=== PATIENT | male | born 1965 | race Two or more races ===

== ENCOUNTER 2023-08-04 15:22 | Inpatient (IN) | payer OTHER ==
[~2023-08-04] VITALS: Ht 172.7 cm; Wt 95.2 kg
[2023-08-04 16:25] LABS: Basophils # (auto) 0.1 10 ^3/uL (0-0.2); Basophils % (auto) 0.7 % (0.0-2.0); Eosinophils # (auto) 0 10 ^3/uL (0-0.8); Eosinophils % (auto) 0.7 % (0.0-7.0); Hemoglobin 14.4 g/dL (13.5-17.5); Lymphocytes # (auto) 2.2 10 ^3/uL (0.4-5.4); Lymphocytes % (auto) 30.5 % (10.0-50.0); Mean Corpuscular Hemoglobin 27.6 pg (28.0-32.0); Mean Corpuscular Hgb Conc. 32.7 g/dL (32.0-36.0); Mean Corpuscular Volume 84.6 fL (80.0-100.0); Monocytes # (auto) 0.4 10 ^3/uL (0-1.3); Monocytes % (auto) 6.1 % (0.0-12.0); Neutrophils # (auto) 4.4 10 ^3/uL (1.6-8.6); Red Cell Distribution Width 13.5 % (11.8-14.3); White Blood Cell 7.1 10^3/uL (4.4-10.8)
[2023-08-04 16:46] LABS: Alanine Aminotransferase 146 U/L (7-40); Albumin 4.3 g/dL (3.2-4.8); Alkaline Phosphatase 161 U/L (46-116); Anion Gap 13 (5-15); Aspartate Aminotransferase 57 U/L (13-40); BUN/Creatinine Ratio 12.9 (10.0-20.0); Bilirubin, Total 0.6 mg/dL (0.2-1.0); Blood Urea Nitrogen 18 mg/dL (9-23); Calcium 9.4 mg/dL (8.5-10.1); Carbon Dioxide 19 mmol/L (20-30); Chloride 95 mmol/L (98-107); Potassium 4.7 mmol/L (3.5-5.1); Sodium 127 mmol/L (136-145); Total Protein 6.6 g/dL (5.7-8.2)
[2023-08-04 16:53] LABS: INR 1.01 (0.9-1.15); Partial Thromboplastin Time 26.8 SEC (24.5-34.5); Prothrombin Time 10.6 sec (9.3-11.8)
[2023-08-04 17:09] LABS: Glucose 664 mg/dL (74-106)
[2023-08-04] MEDS ORDERED: SODIUM CHLORIDE 0.9% 1,000 ML IV ONE ×2 (17:15)
[2023-08-04] MEDS ORDERED: InsuLIN REG 1unit/0.01ml Soln (100units/ml) IV ONE (17:15)
[2023-08-04 17:20] LABS: Urine Bacteria NONE SEEN /hpf (None Seen); Urine Blood Negative /uL (Negative); Urine Clarity Clear (Clear); Urine Color Colorless (Yellow); Urine Protein, UAD Negative (Negative); Urine Specific Gravity 1.036 (1.001-1.035); Urine Urobilinogen Normal (Negative); Urine WBC <1 /hpf (0 - 3); Urine pH 5.5 (5.0-8.0)
[2023-08-04 20:30] LABS: Alanine Aminotransferase 127 U/L (7-40); Alkaline Phosphatase 159 U/L (46-116); Anion Gap 13 (5-15); BUN/Creatinine Ratio 9.4 (10.0-20.0); Blood Urea Nitrogen 12 mg/dL (9-23); Calcium 8.9 mg/dL (8.5-10.1); Carbon Dioxide 17 mmol/L (20-30); Chloride 104 mmol/L (98-107)
[2023-08-04 20:31] LABS: Bilirubin, Total 0.4 mg/dL (0.2-1.0); Total Protein 6.4 g/dL (5.7-8.2)
[2023-08-04 20:34] LABS: Aspartate Aminotransferase 52 U/L (13-40)
[2023-08-04 20:35] LABS: Sodium 134 mmol/L (136-145)
[2023-08-04 20:39] LABS: Glucose 532 mg/dL (74-106)
[2023-08-04] MEDS ORDERED: ACETAMINOPHEN 325 MG TAB PO PRN (20:45)
[2023-08-04] MEDS ORDERED: ONDANSETRON HCL 4 MG/2 ML VIAL IV PRN (20:45)
[2023-08-04] MEDS ORDERED: DEXTROSE (50%) 50ML SYRG IV PRN (20:45)
[2023-08-04] MEDS: ACCU-CHEK COMFORT CURVE STRIP VI SCH (23:56)
[2023-08-04] MEDS: InsuLIN REG 1unit/0.01ml Soln (100units/ml) SC SCH (23:56)
[2023-08-05] MEDS: ACCU-CHEK COMFORT CURVE STRIP VI SCH ×5 (03:58→21:36)
[2023-08-05] MEDS: InsuLIN REG 1unit/0.01ml Soln (100units/ml) SC SCH ×5 (04:00→21:40)
[2023-08-05 04:47] VITALS: BP 123/76; PULSE 72; RESP 17; TEMP 97.6; O2SAT 96
[2023-08-05 05:00] VITALS: BP 123/76; PULSE 72; RESP 18; TEMP 97.6; O2SAT 96
[2023-08-05 06:21] LABS: Basophils # (auto) 0 10 ^3/uL (0-0.2); Basophils % (auto) 0.5 % (0.0-2.0); Eosinophils # (auto) 0.2 10 ^3/uL (0-0.8); Eosinophils % (auto) 2.6 % (0.0-7.0); Hematocrit 38.3 % (41.0-53.0); Hemoglobin 12.8 g/dL (13.5-17.5); Lymphocytes # (auto) 3.1 10 ^3/uL (0.4-5.4); Lymphocytes % (auto) 49.3 % (10.0-50.0); Mean Corpuscular Hemoglobin 27.4 pg (28.0-32.0); Mean Corpuscular Hgb Conc. 33.4 g/dL (32.0-36.0); Mean Corpuscular Volume 82.1 fL (80.0-100.0); Monocytes # (auto) 0.4 10 ^3/uL (0-1.3); Neutrophils # (auto) 2.6 10 ^3/uL (1.6-8.6); Neutrophils % (auto) 40.6 % (37.0-80.0); Nucleated Red Blood Cells % 0.1 %; Red Blood Cells 4.66 10^6/uL (4.5-5.90); Red Cell Distribution Width 13.7 % (11.8-14.3); White Blood Cell 6.3 10^3/uL (4.4-10.8)
[2023-08-05 06:38] LABS: Alanine Aminotransferase 111 U/L (7-40); Albumin 3.8 g/dL (3.2-4.8); Alkaline Phosphatase 115 U/L (46-116); Anion Gap 9 (5-15); Aspartate Aminotransferase 40 U/L (13-40); BUN/Creatinine Ratio 10.4 (10.0-20.0); Bilirubin, Total 0.5 mg/dL (0.2-1.0); Blood Urea Nitrogen 10 mg/dL (9-23); Carbon Dioxide 21 mmol/L (20-30); Chloride 105 mmol/L (98-107); Potassium 3.3 mmol/L (3.5-5.1); Sodium 135 mmol/L (136-145)
[2023-08-05 06:45] LABS: Glucose 235 mg/dL (74-106)
[2023-08-05] MEDS ORDERED: LOSA100T58 PO (07:13)
[2023-08-05 09:00] VITALS: BP 115/67; PULSE 80; RESP 18; TEMP 98.2; O2SAT 95
[2023-08-05] MEDS: LOSARTAN POTASSIUM 50 MG TAB PO SCH (09:02)
[2023-08-05 13:00] VITALS: BP 115/76; PULSE 79; RESP 18; TEMP 97.6; O2SAT 97
[2023-08-05] MEDS ORDERED: POTASSIUM CHL 20 Meq TABLET PO ONE (13:15)
[2023-08-05] MEDS: SODIUM CHLORIDE 0.9% 1,000 ML IV SCH (13:50)
[2023-08-05] MEDS: metFORMIN HYDROCHLORIDE 850 MG TAB PO SCH (16:57)
[2023-08-05 17:00] VITALS: BP 142/79; PULSE 78; RESP 17; TEMP 98.4; O2SAT 91
[2023-08-05] MEDS: INSULIN LANTUS (GLARGINE) 1 /0.01ml (100units/ml) SC SCH (21:38)
[2023-08-05 22:00] VITALS: BP 144/90; PULSE 78; RESP 16; TEMP 99.1; O2SAT 95
[2023-08-06] MEDS: ACCU-CHEK COMFORT CURVE STRIP VI SCH ×6 (00:34→21:52)
[2023-08-06] MEDS: InsuLIN REG 1unit/0.01ml Soln (100units/ml) SC SCH ×5 (00:35→17:25)
[2023-08-06 05:00] VITALS: BP 117/81; PULSE 79; RESP 18; TEMP 98.5; O2SAT 95
[2023-08-06] MEDS: SODIUM CHLORIDE 0.9% 1,000 ML IV SCH ×2 (06:29→09:15)
[2023-08-06 07:38] LABS: Alanine Aminotransferase 164 U/L (7-40); Alkaline Phosphatase 85 U/L (46-116); Anion Gap 11 (5-15); BUN/Creatinine Ratio 9.3 (10.0-20.0); Blood Urea Nitrogen 8 mg/dL (9-23); Calcium 8.6 mg/dL (8.5-10.1); Carbon Dioxide 19 mmol/L (20-30); Chloride 108 mmol/L (98-107); Glucose 173 mg/dL (74-106); Potassium 3.1 mmol/L (3.5-5.1); Sodium 138 mmol/L (136-145); Triglycerides 508 mg/dL (< 150)
[2023-08-06 07:39] LABS: Albumin 3.4 g/dL (3.2-4.8); Aspartate Aminotransferase 105 U/L (13-40)
[2023-08-06 07:40] LABS: Bilirubin, Total 0.5 mg/dL (0.2-1.0); Cholesterol 201 mg/dL (< 200); HDL Cholesterol 24 mg/dL (40-59); Phosphorus 2.1 mg/dL (2.4-5.1); Total Protein 5.6 g/dL (5.7-8.2)
[2023-08-06 09:00] VITALS: BP 121/67; PULSE 80; RESP 19; TEMP 98.5; O2SAT 95
[2023-08-06] MEDS: LOSARTAN POTASSIUM 50 MG TAB PO SCH (09:16)
[2023-08-06] MEDS: metFORMIN HYDROCHLORIDE 850 MG TAB PO SCH ×2 (09:16→17:24)
[2023-08-06] MEDS ORDERED: POTASSIUM CHL 20 Meq TABLET PO ONE (11:15)
[2023-08-06] MEDS ORDERED: DEXTROSE (50%) 50ML SYRG IV PRN (11:15)
[2023-08-06] MEDS ORDERED: POTASSIUM PHOSPHATE 26.4 MEQ in SODIUM CHL 0.9% 100 ML IV ONE (11:30)
[2023-08-06 12:18] LABS: Hepatitis B Surface Antigen Negative (Negative)
[2023-08-06 12:39] LABS: Hepatitis A Ab IgM Negative; Hepatitis B Core IgM Negative
[2023-08-06 12:40] LABS: Hepatitis C Antibody Negative (Negative)
[2023-08-06 13:00] VITALS: BP 104/64; PULSE 66; RESP 18; TEMP 98.2; O2SAT 96
[2023-08-06 17:00] VITALS: BP 121/89; PULSE 84; RESP 18; TEMP 99.1; O2SAT 97
[2023-08-06] MEDS: INSULIN LANTUS (GLARGINE) 1 /0.01ml (100units/ml) SC SCH (21:59)
[2023-08-06 22:00] VITALS: BP 130/54; PULSE 90; RESP 18; TEMP 98.7; O2SAT 96
[2023-08-06] MEDS ORDERED: InsuLIN REG 1unit/0.01ml Soln (100units/ml) SC SCH (22:00)
[2023-08-07 05:00] VITALS: BP 115/78; PULSE 78; RESP 17; TEMP 97.6; O2SAT 97
[2023-08-07 05:51] LABS: Alanine Aminotransferase 150 U/L (7-40); Albumin 3.5 g/dL (3.2-4.8); Alkaline Phosphatase 80 U/L (46-116); Anion Gap 7 (5-15); Aspartate Aminotransferase 75 U/L (13-40); BUN/Creatinine Ratio 7.3 (10.0-20.0); Bilirubin, Total 0.6 mg/dL (0.2-1.0); Blood Urea Nitrogen 7 mg/dL (9-23); Calcium 8.5 mg/dL (8.7-10.4); Carbon Dioxide 24 mmol/L (20-30); Chloride 107 mmol/L (98-107); Glucose 181 mg/dL (74-106); Magnesium 1.9 mg/dL (1.6-2.6); Phosphorus 2.9 mg/dL (2.4-5.1); Potassium 3.6 mmol/L (3.5-5.1); Sodium 138 mmol/L (136-145); Total Protein 5.5 g/dL (5.7-8.2)
[2023-08-07] MEDS: ACCU-CHEK COMFORT CURVE STRIP VI SCH ×2 (06:33→10:57)
[2023-08-07] MEDS: InsuLIN REG 1unit/0.01ml Soln (100units/ml) SC SCH ×2 (06:33→11:00)
[2023-08-07 08:00] VITALS: PULSE 86; RESP 18
[2023-08-07] MEDS: LOSARTAN POTASSIUM 50 MG TAB PO SCH (08:51)
[2023-08-07] MEDS: metFORMIN HYDROCHLORIDE 850 MG TAB PO SCH (08:51)
[2023-08-07] MEDS: SODIUM CHLORIDE 0.9% 1,000 ML IV SCH (08:53)
[2023-08-07 09:00] VITALS: BP 143/89; PULSE 85; RESP 16; TEMP 97.7; O2SAT 96
[2023-08-07 13:00] VITALS: BP 129/59; PULSE 78; RESP 19; TEMP 98.7; O2SAT 95
[2023-08-07 13:11] VITALS: BP 143/89; TEMP 36.5
== END 2023-08-07 14:00 | disposition home or self-care (01) | DRG 682 ==
LOC: ER 15:22 → OVERFLOW 20:44 → WEST WING 23:12
PROVIDERS: ADMIT Nurse Practitioner; ATTEND Internal Medicine
DX: N17.0 Acute kidney failure with tubular necrosis (principal); E11.10 Type 2 diabetes mellitus with ketoacidosis without coma; E86.0 Dehydration; E11.65 Type 2 diabetes mellitus with hyperglycemia; I10 Essential (primary) hypertension; E66.9 Obesity, unspecified; Z68.31 Body mass index [BMI] 31.0-31.9, adult; E78.5 Hyperlipidemia, unspecified; R74.01 Elevation of levels of liver transaminase levels; K76.0 Fatty (change of) liver, not elsewhere classified; E78.1 Pure hyperglyceridemia; E87.6 Hypokalemia; R79.89 Other specified abnormal findings of blood chemistry; Z79.4 Long term (current) use of insulin; Z79.84 Long term (current) use of oral hypoglycemic drugs
CPT/HCPCS: 36415; 76705; 80053; 80061; 80074; 81001; 82010; 82962; 83036; 83605; 83735; 84100; 84443; 84484; 85025; 85610; 85730; G0378; J1815